=== PATIENT | male | born 1930 | race Caucasian/White ===

== ENCOUNTER → 2018-08-18 | Day surgery (SDC) | payer OTHER ==
[~2018-08-18] MED LIST: ALBUTEROL 0.083% (NEB) 2.5 MG/3 ML AMP HHN; LABETALOL HCL 20MG INJ IV; LIDOCAINE 100 MG SYRINGE; PROPOFOL 20 ML
== END | disposition home or self-care (01) ==
LOC: GIL 12:28
DX: Z43.1 Encounter for attention to gastrostomy (principal); E78.5 Hyperlipidemia, unspecified; E11.9 Type 2 diabetes mellitus without complications; I10 Essential (primary) hypertension; J44.9 Chronic obstructive pulmonary disease, unspecified; Z86.73 Personal history of transient ischemic attack (TIA), and cerebral infarction without residual deficits
CPT/HCPCS: 43246